=== PATIENT | male | born 1970 | race Caucasian/White ===

== ENCOUNTER 2023-12-13 17:42 | Inpatient (IN) | payer OTHER, SELFPAY ==
--- NOTE | ~2023-12-13 | XR_ITS ---
EXAMINATION: XR CHEST CLINICAL INFORMATION: Weight loss over 1.5 months with cough COMPARISON: None available. TECHNIQUE: 2 views of the chest were obtained. FINDINGS: No significant abnormality is noted involving the heart, lungs, mediastinum, bony thorax or soft tissues. Possible tiny granuloma in the anteromedial right lower lobe. XR/XR chest 2V IMPRESSION: No acute intrathoracic disease. Given the history of smoking and weight loss, if this patient qualifies, an elective low-dose lung screening CT exam would probably be indicated. Electronically signed by: Raul Rosas MD 12/15/2023 06:26 PM EDT
[2023-12-13 18:05] VITALS: BMI 20.6
--- NOTE | 2023-12-13 19:41 | PC.ADMIT ---
This 53 year old gentleman (Jerry Pollard) was admitted to , bed 508-2 at 18:00, via stretcher from [facility]. Primary language is Mosotho, although he does have some Guamanian. Safety/ skin check completed and skin was intact with multiple tattoos across chest and arms. Patient was very sleepy and could be considered a poor historian at this time. Per admission paperwork, he was suicidal with a plan to cut wrists, or something else. He has a history of alcohol abuse but reported to this sheet writer that he stopped drinking, a long time ago. Tox screen positive for cocaine only. Current stressors include recent homelessness. He is a long-time cigarette smoker (approximately 1 ppd). He declined nicotine replacement and is aware smoking cessation specialists will be stopping by to see him to provide further education, etc. He declined the influenza vaccine. Cooperative with admission process. Unable to complete admission process due to his level of sleepiness.
--- NOTE | 2023-12-13 20:01 | PC.ADMIT ---
Addendum: Mr. Pollard is currently endorsing suicidal ideation but he feels safe being in the hospital and it is now passive ideation. He said he can and will let staff know if this changes.
[2023-12-13] MEDS: traZODone HCL 50 MG TABLET PO (23:37)
[2023-12-13] MEDS: Zolpidem Tartrate 5 MG TABLET 10 MG PO (23:37)
[2023-12-13] MEDS: clonazePAM 1 MG TABLET PO (23:37)
[2023-12-14 08:29] VITALS: BP 109/64; PULSE 109; TEMP 36.9; O2SAT 94
[2023-12-14] MEDS: clonazePAM 1 MG TABLET PO ×2 (08:35→20:41)
[2023-12-14] MEDS: ARIPiprazole 5 MG TABLET PO (08:35)
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
[2023-12-14 09:46] LABS: Estimated Average Glucose 105 mg/dL; Hemoglobin A1c % 5.3 % (<6.0)
[2023-12-14 09:47] LABS: Alanine Aminotransferase 13 U/L (0-40); Albumin Level 3.8 g/dL (3.5-5.0); Alkaline Phosphatase 77 U/L (39-117); Anion Gap 12 (12-20); Aspartate Amino Transferase 15 U/L (5-37); Bilirubin Total 0.3 mg/dL (0.0-1.0); Blood Urea Nitrogen 15 mg/dL (9-16); Calcium 9.5 mg/dL (8.4-10.2); Carbon Dioxide 28 mmol/L (22-29); Chloride 102 mmol/L (96-108); Cholesterol 126 mg/dL (<200); Creatinine Clr Calc Pharmacy 68.1; Estimated Glomerular Filt Rate > 60; Glucose Fasting 149 mg/dL (60-99); HDL Cholesterol 34 mg/dL (>40); LDL Cholesterol Calculated 75 mg/dL (<100); Potassium 4.2 mmol/L (3.3-5.1); Sodium 138 mmol/L (135-145); Total Protein 7.9 g/dL (6.5-8.0); Triglycerides 88 mg/dL (<150)
--- NOTE | 2023-12-14 11:36 | P.CONHOSP_ITS ---
History of Present Illness Data of Consult Service Date: 12/14/23 Primary Care Provider: Merlyn CHÁVEZ Reason for consult: Admission H&P Pt is a 53-year-old male with PMH significant for polysubstance use disorder and depression who is admitted to M5 psychiatry unit for increasing depression and SI. Patient initially presented to [facility] ED complaining of plans to cut himself. He is currently homeless has been staying with friends in their apartments.. Medical consult for admission H&P. Attempted to see patient in his room where he is noted to be resting comfortably on his bed. However, patient?does not appear amenable to interview and exam. Initially patient's eyes were open when entered the room, but closes them when approached and refuses to open them or acknowledge being addressed. Review of records from [facility] ED indicate patient had no acute medical complaints at time of presentation. Lab work including CBC and BmP unremarkable. Review of Systems 2 Review of Systems: Unable to obtain [facility] Medical History (Updated 12/14/23 @ 13:44 by ARNAUD Patricia) Suicidal ideation Cocaine use disorder Social History Household Members: Other Household Members Other:: Reports he is homeless Housing: Other Do you presently have visiting nurse or other home services: No Patient Tobacco Use Status: Current everyday Tobacco user Tobacco use type: Cigarette Cigarette Packs Per Day: 1 Cigarettes Per Day: 20.0 Years Smoked: 40 Smoked in Last 30 Days: Yes Patient Interested in Nicotine Replacement: No Patient Given Instructions on How to Stop Smoking: No Second Hand Smoke Exposure: No Use of substances other than those prescribed or required for medical reasons: Yes Substance Use Type: Crack/Cocaine Substance Use Frequency: Occasionally Last Used Substance: Days (ago) Currently Displaying Signs/Symptoms of Drug Intoxication Withdrawal: No Any prior treatment program specific to substance use: Yes ( One time. A long time ago. I don't remember where. ) Have you been hit, kicked, punched, or otherwise hurt by someone within the past year? If so, by whom?: No Do you feel safe in your current relationship?: No Current Relationship Is there a partner from a previous relationship who is making you feel unsafe now?: No Are you made to feel afraid or neglected: No Spiritual Healthcare Practices: none Advance Directives: No Advance Directives Information Provided: No Do you have thoughts of harming others: None Do you have a plan to hurt others: No Plan Recently lost weight without trying: Unsure How much weight loss: Unsure Eating poorly because of decreased appetite: No Nutrition screen score: 4 Nutrition Risks: No Nutritional Risk Poor oral hygiene: Yes Meds Allergies Allergy/AdvReac Type Severity Reaction Status Date / Time No Known Allergies Allergy Verified 12/13/23 18:56 Active Medications: Current Medications Acetaminophen (Acetaminophen 325 Mg Tablet) 650 mg PO Q6H PRN PRN Reason: Headache/Pain Mild Scale (1-3) Al Hydroxide/Mg Hydroxide (Magnesium Hydrox/Alum Hydrox 30 Ml Oral.Susp) 30 ml PO Q6H PRN PRN Reason: Heartburn/Nausea Aripiprazole (Aripiprazole 5 Mg Tablet) 5 mg PO DAILY DELL Last Admin: 12/14/23 08:35 Dose: 5 mg Clonazepam (Clonazepam 1 Mg Tablet) 1 mg PO TID PRN PRN Reason: mod anxiety Last Admin: 12/14/23 08:35 Dose: 1 mg Clonidine HCl (Clonidine Hcl 0.1 Mg Tablet) 0.1 mg PO TID PRN; Protocol PRN Reason: Anxiety Hydroxyzine HCl (Hydroxyzine Hcl 25 Mg Tablet) 25 mg PO Q6H PRN PRN Reason: Anxiety Magnesium Hydroxide (Milk Of Magnesia 30 Ml Oral.Susp) 30 ml PO DAILY PRN PRN Reason: Constipation Nicotine Polacrilex (Nicotine Polacrilex 2 Mg Gum) 4 mg BUCCAL Q2H PRN PRN Reason: Nicotine Cravings Olanzapine (Olanzapine 5 Mg Tablet) 5 mg PO TID PRN PRN Reason: agitation Trazodone HCl (Trazodone Hcl 50 Mg Tablet) 50 mg PO BEDTIME MRX1 PRN PRN Reason: Insomnia Last Admin: 12/13/23 23:37 Dose: 50 mg Zolpidem Tartrate (Zolpidem Tartrate 5 Mg Tablet) 10 mg PO BEDTIME DELL Last Admin: 12/13/23 23:37 Dose: 10 mg Home Medications ?Medication ?Instructions ?Recorded ?Confirmed ?Last Taken ?Type aripiprazole 5 mg tablet (Abilify) 5 mg PO DAILY 12/13/23 12/13/23 Unknown History clonazepam 1 mg tablet (Klonopin) 1 mg PO TID 12/13/23 12/13/23 Unknown History clonidine HCl 0.1 mg tablet 0.1 mg PO TID PRN Anxiety 12/13/23 12/13/23 Unknown History zolpidem 10 mg tablet (Ambien) 10 mg PO BEDTIME 12/13/23 12/13/23 Unknown History Physical Exam 2 Vital Signs and Narrative: Vital Signs: Last Vital Signs Temp 98.4 F 12/14/23 08:29 Pulse 109 H 12/14/23 08:29 BP 109/64 12/14/23 08:29 Pulse Ox 94 12/14/23 08:29 O2 Del Method Room Air 12/14/23 08:29 BMI result Body Mass Index 20.6 Patient seen resting comfortably in bed In no acute distress Patient refuses formal exam Results Labs 12/14/23 09:20 Labs: Laboratory Results - last 24 hr 12/14/23 09:20 Anion Gap 12 Estim Creat Clear Calc 68.1 Estimated GFR > 60 Fasting Glucose 149 H Estimat Average Glucose 105 Hemoglobin A1c % 5.3 Calcium 9.5 Total Bilirubin 0.3 AST 15 ALT 13 Alkaline Phosphatase 77 Total Protein 7.9 Albumin 3.8 Triglycerides 88 Cholesterol 126 LDL Cholesterol, Calc 75 HDL Cholesterol 34 L Assessment and Plan (1) Medical clearance for psychiatric admission: Status: Acute Plan Pt is a 53-year-old male with PMH significant for polysubstance use disorder and depression who is admitted to M5 psychiatry unit for increasing depression and SI. Patient initially presented to [facility] ED complaining of plans to cut himself. He is currently homeless has been staying with friends in their apartments.. Medical consult for admission H&P. Attempted to see patient in his room where he is noted to be resting comfortably on his bed. However, patient?does not appear amenable to interview and exam. Mood disorder Plan as per psychiatry Polysubstance use disorder Patient admits to using cocaine prior to presentation to [facility] ED Plan as per Psychiatry/Addiction medicine Otherwise the patient does not appear to have any acute medical complaints or chronic medical conditions at this time. Will sign off for now. Thank you for allowing us to participate in the care of this patient. Please re-consult if any acute issue or need arises.
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
[2023-12-14 19:43] VITALS: BP 119/74; PULSE 112; RESP 18; TEMP 36.8; O2SAT 96
[2023-12-14] MEDS: Zolpidem Tartrate 5 MG TABLET 10 MG PO (20:40)
[2023-12-14] MEDS: traZODone HCL 50 MG TABLET PO (20:40)
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
[2023-12-15] MEDS: ARIPiprazole 10 MG TABLET PO (08:39)
[2023-12-15] MEDS: clonazePAM 1 MG TABLET PO ×3 (08:39→20:05)
[2023-12-15 09:44] VITALS: BP 115/70; PULSE 111; TEMP 37; O2SAT 96
[2023-12-15] MEDS: guaiFENesin 100 MG/5 ML 5 ML LIQUID PO (11:59)
[2023-12-15 20:00] VITALS: BP 113/61; PULSE 99; RESP 16; TEMP 36.8; O2SAT 97
[2023-12-15] MEDS: Zolpidem Tartrate 5 MG TABLET 10 MG PO (20:04)
[2023-12-15] MEDS: traZODone HCL 50 MG TABLET PO (20:05)
[2023-12-16 07:57] VITALS: BP 116/78; PULSE 80; TEMP 36.8; O2SAT 97
[2023-12-16] MEDS: ARIPiprazole 10 MG TABLET PO (08:24)
[2023-12-16] MEDS: clonazePAM 1 MG TABLET PO ×3 (08:28→20:37)
[2023-12-16] MEDS: guaiFENesin 100 MG/5 ML 5 ML LIQUID PO ×2 (09:18→19:58)
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
[2023-12-16] MEDS: traZODone HCL 50 MG TABLET PO (19:58)
[2023-12-16] MEDS: hydrOXYzine HCL 25 MG TABLET PO (19:58)
[2023-12-16] MEDS: Zolpidem Tartrate 5 MG TABLET 10 MG PO (19:58)
[2023-12-16] MEDS: Acetaminophen 325 MG TABLET 650 MG PO (19:59)
[2023-12-16 20:00] VITALS: BP 137/94; PULSE 78; RESP 16; TEMP 36.4; O2SAT 97
[2023-12-17 08:00] VITALS: BP 117/67; PULSE 85; TEMP 36.3; O2SAT 96
[2023-12-17] MEDS: clonazePAM 1 MG TABLET PO ×2 (08:53→20:16)
[2023-12-17] MEDS: guaiFENesin 100 MG/5 ML 5 ML LIQUID PO (08:56)
[2023-12-17] MEDS: ARIPiprazole 10 MG TABLET PO (08:56)
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
--- NOTE | 2023-12-17 13:10 | PC.NURSE ---
PT SIGNED A 3 DAY NOTICE ON Saturday12/17/23. UP ON Saturday12/20/23.
[2023-12-17 20:00] VITALS: BP 127/65; PULSE 97; RESP 16; TEMP 36.5; O2SAT 100
[2023-12-17] MEDS: Acetaminophen 325 MG TABLET 650 MG PO (20:15)
[2023-12-17] MEDS: Zolpidem Tartrate 5 MG TABLET 10 MG PO (20:16)
[2023-12-18 08:22] VITALS: BP 125/71; PULSE 88; TEMP 36.9; O2SAT 98
[2023-12-18] MEDS: clonazePAM 1 MG TABLET PO ×2 (08:30→20:52)
[2023-12-18] MEDS: ARIPiprazole 10 MG TABLET PO (08:30)
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
[2023-12-18] MEDS: guaiFENesin 100 MG/5 ML 5 ML LIQUID PO (12:38)
[2023-12-18 20:00] VITALS: BP 125/74; PULSE 92; RESP 18; TEMP 36.8; O2SAT 96
[2023-12-18] MEDS: hydrOXYzine HCL 25 MG TABLET PO (20:52)
[2023-12-18] MEDS: traZODone HCL 50 MG TABLET PO (20:52)
[2023-12-18] MEDS: cloNIDine HCL 0.1 MG TABLET PO (20:52)
[2023-12-18] MEDS: Zolpidem Tartrate 5 MG TABLET 10 MG PO (20:52)
[2023-12-19 08:00] VITALS: BP 115/62; PULSE 88; RESP 16; TEMP 36.7; O2SAT 96
[2023-12-19] MEDS: ARIPiprazole 10 MG TABLET PO (10:31)
[2023-12-19] MEDS: guaiFENesin 100 MG/5 ML 5 ML LIQUID PO (10:32)
[2023-12-19] MEDS: hydrOXYzine HCL 25 MG TABLET PO (10:32)
[2023-12-19] MEDS: clonazePAM 1 MG TABLET PO ×3 (10:35→20:53)
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
--- NOTE | 2023-12-19 13:54 | P.CONPL_ITS ---
History of Present Illness History of Present Illness Consult date: 12/19/23 Chief complaint: Weight loss in smoker Narrative: 53-year-old gentleman, active approximately 30 pack year smoker with no underlying pulmonary related history, but substance abuse and bipolar disorder, currently undergoing psychiatric hospitalization. Pulmonary evaluation requested secondary to patient's underlying smoking history and recent history of unintended weight loss. Patient is poorly compliant with obtaining medical history , but denies any respiratory related concerns or complaints, including dyspnea on exertion, cough, or sputum production. Review of Systems 2 Cardiovascular: Cardiovascular: Denies dyspnea on exertion Respiratory: Respiratory: Denies cough, Denies excessive phlegm production and Denies dyspnea on exertion PMFSH Past Medical History Medical History (Updated 12/19/23 @ 13:57 by Cliff Chavira MD) PTSD (post-traumatic stress disorder) Bipolar disorder, unspecified Suicidal ideation Cocaine use disorder Social History Social History Household Members: Other Household Members Other:: Reports he is homeless Housing: Other Do you presently have visiting nurse or other home services: No Patient Tobacco Use Status: Current everyday Tobacco user Tobacco use type: Cigarette Cigarette Packs Per Day: 1 Cigarettes Per Day: 20.0 Years Smoked: 40 Smoked in Last 30 Days: Yes Patient Interested in Nicotine Replacement: No Patient Given Instructions on How to Stop Smoking: No Second Hand Smoke Exposure: No Use of substances other than those prescribed or required for medical reasons: Yes Substance Use Type: Crack/Cocaine Substance Use Frequency: Occasionally Last Used Substance: Days (ago) Currently Displaying Signs/Symptoms of Drug Intoxication Withdrawal: No Any prior treatment program specific to substance use: Yes ( One time. A long time ago. I don't remember where. ) Have you been hit, kicked, punched, or otherwise hurt by someone within the past year? If so, by whom?: No Do you feel safe in your current relationship?: No Current Relationship Is there a partner from a previous relationship who is making you feel unsafe now?: No Are you made to feel afraid or neglected: No Spiritual Healthcare Practices: none Advance Directives: No Advance Directives Information Provided: No Do you have thoughts of harming others: None Do you have a plan to hurt others: No Plan Recently lost weight without trying: Unsure How much weight loss: Unsure Eating poorly because of decreased appetite: No Nutrition screen score: 4 Nutrition Risks: No Nutritional Risk Poor oral hygiene: Yes service: No Sexual orientation: Straight/Heterosexual Meds Allergies Allergy/AdvReac Type Severity Reaction Status Date / Time No Known Allergies Allergy Verified 12/13/23 18:56 Active Medications: Current Medications Acetaminophen (Acetaminophen 325 Mg Tablet) 650 mg PO Q6H PRN PRN Reason: Headache/Pain Mild Scale (1-3) Last Admin: 12/17/23 20:15 Dose: 650 mg Al Hydroxide/Mg Hydroxide (Magnesium Hydrox/Alum Hydrox 30 Ml Oral.Susp) 30 ml PO Q6H PRN PRN Reason: Heartburn/Nausea Aripiprazole (Aripiprazole 10 Mg Tablet) 10 mg PO DAILY DELL Last Admin: 12/19/23 10:31 Dose: 10 mg Clonazepam (Clonazepam 1 Mg Tablet) 1 mg PO TID PRN PRN Reason: mod anxiety Last Admin: 12/19/23 10:35 Dose: 1 mg Clonidine HCl (Clonidine Hcl 0.1 Mg Tablet) 0.1 mg PO TID PRN; Protocol PRN Reason: Anxiety Last Admin: 12/18/23 20:52 Dose: 0.1 mg Guaifenesin (Guaifenesin 100 Mg/5 Ml 5 Ml Liquid) 5 ml PO Q6H PRN PRN Reason: Cough Last Admin: 12/19/23 10:32 Dose: 5 ml Hydroxyzine HCl (Hydroxyzine Hcl 25 Mg Tablet) 25 mg PO Q6H PRN PRN Reason: Anxiety Last Admin: 12/19/23 10:32 Dose: 25 mg Magnesium Hydroxide (Milk Of Magnesia 30 Ml Oral.Susp) 30 ml PO DAILY PRN PRN Reason: Constipation Nicotine Polacrilex (Nicotine Polacrilex 2 Mg Gum) 4 mg BUCCAL Q2H PRN PRN Reason: Nicotine Cravings Olanzapine (Olanzapine 5 Mg Tablet) 5 mg PO TID PRN PRN Reason: agitation Trazodone HCl (Trazodone Hcl 50 Mg Tablet) 50 mg PO BEDTIME MRX1 PRN PRN Reason: Insomnia Last Admin: 12/18/23 20:52 Dose: 50 mg Zolpidem Tartrate (Zolpidem Tartrate 5 Mg Tablet) 10 mg PO BEDTIME EDLL Last Admin: 12/18/23 20:52 Dose: 10 mg Home Medications ?Medication ?Instructions ?Recorded ?Confirmed ?Last Taken ?Type aripiprazole 5 mg tablet (Abilify) 5 mg PO DAILY 12/13/23 12/13/23 Unknown History clonazepam 1 mg tablet (Klonopin) 1 mg PO TID 12/13/23 12/13/23 Unknown History clonidine HCl 0.1 mg tablet 0.1 mg PO TID PRN Anxiety 12/13/23 12/13/23 Unknown History zolpidem 10 mg tablet (Ambien) 10 mg PO BEDTIME 12/13/23 12/13/23 Unknown History Physical Exam 2 Vital Signs: Vital Signs: Last Vital Signs Temp 98.1 F 12/19/23 08:00 Pulse 88 12/19/23 08:00 Resp 16 12/19/23 08:00 BP 115/62 12/19/23 08:00 Pulse Ox 96 12/19/23 08:00 O2 Del Method Room Air 12/19/23 08:00 BMI result Body Mass Index 20.6 Const: General: no acute distress and alert Nutritional Appearance: not obese Orientation/consciousness: Other orientation findings ( oriented) HEENT: Head: Yes atraumatic Eyes: General: appearance normal, both eyes and all related structures S clerae: sclerae normal EOM: EOMs intact bilaterally Neck: Neck: Yes supple Lymphatic: no lymphadenopathy noted Resp: Effort & Inspection: normal respiratory effort and no use of accessory muscles Auscultation: clear to auscultation bilaterally Cardio: Rate: regular rate Rhythm: regular rhythm Heart sounds: no gallops, no murmurs and no rubs Skin: General skin exam: other ( warm) Extrem: General: No clubbing, No cyanosis and No edema Results Laboratory Findings 12/14/23 09:20 Abnormal lab findings: Abnormal Labs 12/14/23 09:20 Fasting Glucose 149 H HDL Cholesterol 34 L Assessment and Plan (1) Personal history of nicotine dependence: Status: Acute (2) Weight loss: Status: Acute Plan Impression: 53-year-old gentleman, active 30 pack plus year smoker with concern by treating psychiatry provider for unintended weight loss. Patient denies any pulmonary related concerns or complaints. No chest imaging is available at this time. Recommendation: Outpatient follow-up with lung cancer screening CT chest. Procedures Date of Service Date of Service: 12/19/23
[2023-12-19 20:30] VITALS: BP 129/73; PULSE 106; RESP 18; TEMP 36.4; O2SAT 97
[2023-12-19] MEDS: traZODone HCL 50 MG TABLET PO (20:53)
[2023-12-19] MEDS: Zolpidem Tartrate 5 MG TABLET 10 MG PO (20:53)
[2023-12-20] MEDS: traZODone HCL 50 MG TABLET PO (00:46)
[2023-12-20 08:00] VITALS: BP 129/76; PULSE 82; RESP 18; TEMP 36.9; O2SAT 96
[2023-12-20] MEDS: clonazePAM 1 MG TABLET PO (08:25)
[2023-12-20] MEDS: ARIPiprazole 10 MG TABLET PO (08:25)
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
[2023-12-20] MEDS: Naloxone HCl Nasal TAKE HOME 4 MG SPRAY 8 MG NOSTRILALT (10:26)
--- NOTE | 2023-12-20 11:43 | PC.NURSE ---
Pt discharged via [employer], at 11:42, with all belongings in possession.
== END 2023-12-20 11:42 | disposition other institution (70) | DRG 753 ==
PROVIDERS: Admitting Provider Psychiatry & Neurology Psychiatry; PCP Internal Medicine; Visit Provider Clinical Nurse Specialist Psychiatric/Mental Health, Adult
DX: F31.9 Bipolar disorder, unspecified (principal); R45.851 Suicidal ideations; Z91.148 Patient's other noncompliance with medication regimen for other reason; F43.10 Post-traumatic stress disorder, unspecified; F17.210 Nicotine dependence, cigarettes, uncomplicated; F19.90 Other psychoactive substance use, unspecified, uncomplicated; R63.4 Abnormal weight loss; Z68.20 Body mass index [BMI] 20.0-20.9, adult; F14.90 Cocaine use, unspecified, uncomplicated; Z59.01 Sheltered homelessness; Z71.6 Tobacco abuse counseling; Z79.899 Other long term (current) drug therapy
CPT/HCPCS: 36415; 71046; 80053; 80061; 83036

== ENCOUNTER → 2023-12-13 17:42 | Outpatient (BNV) | payer OTHER, SELFPAY | PROVIDERS: Admitting Provider Psychiatry & Neurology Psychiatry; PCP Internal Medicine; Visit Provider Psychiatry & Neurology Psychiatry | DX: F31.4 Bipolar disorder, current episode depressed, severe, without psychotic features (principal); F14.10 Cocaine abuse, uncomplicated; F43.11 Post-traumatic stress disorder, acute | CPT/HCPCS: 99231; 99232 ==

== ENCOUNTER → 2023-12-13 17:42 | Outpatient (BNV) | payer OTHER, SELFPAY | PROVIDERS: Admitting Provider Psychiatry & Neurology Psychiatry; PCP Internal Medicine; Visit Provider Internal Medicine Pulmonary Disease | DX: R63.4 Abnormal weight loss (principal); Z87.891 Personal history of nicotine dependence | CPT/HCPCS: 99232 ==

== ENCOUNTER → 2023-12-13 17:42 | Outpatient (BNV) | payer OTHER, SELFPAY | PROVIDERS: Admitting Provider Psychiatry & Neurology Psychiatry; PCP Internal Medicine; Visit Provider Student in an Organized Health Care Education/Training Program | DX: Z02.2 Encounter for examination for admission to residential institution (principal) | CPT/HCPCS: 99429 ==